=== PATIENT | female | born 1995 | race Two or more races ===

== ENCOUNTER 2020-03-19 14:45 | Emergency (ER) | payer MEDICAID ==
[~2020-03-19] VITALS: Ht 167.6 cm; Wt 110.6 kg
[2020-03-19 15:30] LABS: BASOPHILS % (AUTO) 1 % (0-1); EOSINOPHILS % (AUTO) 3 % (1-7); LYMPHOCYTES % (AUTO) 23 % (22-44); MEAN CORPUSCULAR HEMOGLOBIN 27.4 pg (27.0-34.8); MEAN CORPUSCULAR HGB CONC 33.2 g/dL (32.4-35.8); MEAN PLATELET VOLUME 8.5 fL (7.4-10.4); MONOCYTES % (AUTO) 10 % (2-9); NEUTROPHILS % (AUTO) 64 % (42-75); PLATELET COUNT 101 x10^3/uL (130-400); RED CELL DISTRIBUTION WIDTH 14.9 % (9.6-15.2)
[2020-03-19 15:35] LABS: MD NO
[2020-03-19 15:45] LABS: ALBUMIN 3.6 g/dL (3.4-5.0); ANION GAP 4 mmol/L (5-15); CALCIUM 8.8 mg/dL (8.5-10.1); CHLORIDE 108 mmol/L (98-107); CREATININE 0.79 mg/dL (0.55-1.02)
[2020-03-19 17:08] VITALS: BP 120/61
--- NOTE | 2020-03-19 18:45 | NUR ---
PT TO [facility] FROM [facility], AMBULATED TO BR WITH STEADY GAIT FOR UA SAMPLE.
[2020-03-19 19:42] LABS: MICROSCOPIC INDICATED
== END 2020-03-19 20:09 | disposition home or self-care (01) ==
LOC: ED 18:50
DX: O20.0 Threatened abortion (principal); R82.71 Bacteriuria; R10.2 Pelvic and perineal pain; R50.9 Fever, unspecified; Z3A.01 Less than 8 weeks gestation of pregnancy
CPT/HCPCS: 36415; 76801; 80048; 81001; 82040; 84702; 85025; 86901; 87086; 99284

== ENCOUNTER 2020-03-27 11:28 | Emergency (ER) | payer MEDICAID ==
[~2020-03-27] VITALS: Ht 167.6 cm; Wt 111.6 kg
--- NOTE | 2020-03-27 11:55 | NUR ---
WARM BLANKET PROVIDED, CALL LIGHT WITHIN REACH.
[2020-03-27 12:51] LABS: BASOPHILS % (AUTO) 1 % (0-1); EOSINOPHILS % (AUTO) 2 % (1-7); LYMPHOCYTES % (AUTO) 23 % (22-44); MEAN CORPUSCULAR HEMOGLOBIN 27.5 pg (27.0-34.8); MEAN CORPUSCULAR HGB CONC 33.3 g/dL (32.4-35.8); MEAN PLATELET VOLUME 8.7 fL (7.4-10.4); MONOCYTES % (AUTO) 8 % (2-9); NEUTROPHILS % (AUTO) 67 % (42-75); PLATELET COUNT 202 x10^3/uL (130-400); RED CELL DISTRIBUTION WIDTH 15.1 % (9.6-15.2)
[2020-03-27 12:54] LABS: MD NO
[2020-03-27 12:59] LABS: ALBUMIN 3.4 g/dL (3.4-5.0); ANION GAP 7 mmol/L (5-15); CALCIUM 8.6 mg/dL (8.5-10.1); CHLORIDE 109 mmol/L (98-107); CREATININE 0.64 mg/dL (0.55-1.02)
[2020-03-27 14:51] VITALS: BP 118/64
== END 2020-03-27 14:52 | disposition home or self-care (01) ==
LOC: ED 13:30
DX: O20.0 Threatened abortion (principal); R10.30 Lower abdominal pain, unspecified; Z3A.00 Weeks of gestation of pregnancy not specified
CPT/HCPCS: 36415; 76801; 80048; 82040; 84702; 85025; 86901; 99284

== ENCOUNTER 2020-04-06 14:31 | Day surgery (SDC) | payer MEDICAID ==
[2020-04-03 09:07] LABS: ALBUMIN 3.3 g/dL (3.4-5.0); ANION GAP 7 mmol/L (5-15); CALCIUM 8.3 mg/dL (8.5-10.1); CHLORIDE 113 mmol/L (98-107)
[2020-04-03 09:08] LABS: BASOPHILS % (AUTO) 0 % (0-1); EOSINOPHILS % (AUTO) 1 % (1-7); LYMPHOCYTES % (AUTO) 20 % (22-44); MEAN CORPUSCULAR HEMOGLOBIN 27.8 pg (27.0-34.8); MEAN CORPUSCULAR HGB CONC 32.9 g/dL (32.4-35.8); MEAN PLATELET VOLUME 8.9 fL (7.4-10.4); MONOCYTES % (AUTO) 7 % (2-9); NEUTROPHILS % (AUTO) 72 % (42-75); PLATELET COUNT 261 x10^3/uL (130-400); RED BLOOD COUNT 4.59 x10^6/uL (3.82-5.3); RED CELL DISTRIBUTION WIDTH 15.2 % (9.6-15.2)
[2020-04-03 09:11] LABS: MD NO
[2020-04-03 09:20] LABS: ALANINE AMINOTRANSFERASE 43 U/L (12-78); ALKALINE PHOSPHATASE 98 U/L (45-117); BILIRUBIN,TOTAL 0.2 mg/dL (0.2-1.0); CREATININE 0.64 mg/dL (0.55-1.02); TOTAL PROTEIN 7.2 g/dL (6.4-8.2)
[~2020-04-06] VITALS: Ht 167.6 cm; Wt 111.0 kg
[~2020-04-06 14:31] MED LIST: METHYLERGONOVINE 0.2 MG/ML IM ONE; MISOPROSTOL 200 MCG TABLET ONE; OXYTOCIN 10 UNITS/ML, 1ML ONE; SILVER NITRATE STICK TP ONE
[2020-04-06] MEDS ORDERED: CHLORHEXIDINE 15 ML UDC MM STA (14:38)
[2020-04-06] MEDS ORDERED: LACTATED RINGERS 1,000 ML IV SCH (15:00)
[2020-04-06 15:01] VITALS: BP 115/72
[2020-04-06] MEDS ORDERED: MIDAZOLAM 1 MG/ML, 2ML ONE (15:44)
[2020-04-06] MEDS ORDERED: FENTANYL PF 250 MCG/5ML ONE (15:44)
[2020-04-06] MEDS ORDERED: HALOPERIDOL 5 MG/ML IV PRN (16:00)
[2020-04-06] MEDS ORDERED: hydrALAzine 20 MG/ML, 1ML IV PRN (16:00)
[2020-04-06] MEDS ORDERED: HYDROmorphone 1 MG/ML, 1ML INJ IVPush PRN (16:00)
[2020-04-06] MEDS ORDERED: PROMETHAZINE 25 MG/ML, 1ML IVPush PRN (16:00)
[2020-04-06] MEDS ORDERED: FENTANYL PF 100 MCG/2ML IV PRN (16:00)
[2020-04-06] MEDS ORDERED: DIPHENHYDRAMINE 50 MG/ML, 1ML IVPush PRN (16:00)
[2020-04-06] MEDS ORDERED: OXYcodone 5 MG/5 ML ORAL.SOL UDC PO PRN (16:00)
[2020-04-06] MEDS ORDERED: LABETALOL 5MG/ML, 20ML IV PRN (16:00)
[2020-04-06] MEDS ORDERED: MEPERIDINE/PF 25MG/0.5ML IVPush PRN (16:00)
[2020-04-06] MEDS ORDERED: CEFAZOLIN 1,000 MG ONE (16:33)
[2020-04-06] MEDS ORDERED: PROPOFOL 10 MG/ML, 20ML ONE (16:33)
[2020-04-06] MEDS ORDERED: DEXAMETHASONE 4 MG/ML, 1ML ONE (16:33)
[2020-04-06] MEDS ORDERED: ONDANSETRON 2MG/ML, 2ML ONE (16:33)
[2020-04-06] MEDS ORDERED: MEPERIDINE/PF 25MG/ML,1ML ONE (16:50)
[2020-04-06] MEDS ORDERED: OXYcodone 5 MG/5 ML ORAL.SOL UDC ONE (16:50)
[2020-04-06] MEDS ORDERED: PROMETHAZINE 25 MG/ML, 1ML ONE (17:16)
== END 2020-04-06 18:45 | disposition home or self-care (01) ==
LOC: OUT 14:31
PROVIDERS: ATTEND Obstetrics & Gynecology
DX: O02.1 Missed abortion (principal); E66.01 Morbid (severe) obesity due to excess calories; Z20.828 Contact with and (suspected) exposure to other viral communicable diseases; Z79.899 Other long term (current) drug therapy
CPT/HCPCS: 36415; 59820; 71046; 80053; 84443; 85025; 86850; 86900; 86923; 88305; J1100; J2175; J2250; J2405; J2550; J2704; J3010; J7120; U0003; J0690; J2210; J2590